=== PATIENT | female | born 1990 ===

== ENCOUNTER 2017-10-18 02:20 | Emergency (ER) | payer OTHER ==
[2017-10-18 02:35] VITALS: BP 92/46; PULSE 87; RESP 18; TEMP 98; O2SAT 99
--- NOTE | 2017-10-18 02:59 | ED PDOC ---
HPI: Psych/Substance Abuse Time Seen by Provider: 10/18/17 02:27 Chief Complaint (Nursing): Substance Abuse Chief Complaint (Provider): substance abuse History Per: Patient History/Exam Limitations: no limitations Onset/Duration Of Symptoms: Hrs (today) Involuntary Hold By: None Additional Complaint(s): Kelly Peters is a 27 year old female, with a history of substance abuse, who was brought to the emergency department via EMS for substance abuse after she was found asleep in public. She admits to using crack cocaine. She denies any acute medical complaints and similarly denies psychiatric complaints, she is requesting to be discharged. PMD: None provided. Past Medical History Reviewed: Historical Data, Nursing Documentation, Vital Signs Vital Signs: Last Vital Signs Temp 98 F 10/18/17 02:25 Pulse 87 10/18/17 02:25 Resp 18 10/18/17 02:25 BP 92/46 L 10/18/17 02:25 Pulse Ox 99 10/18/17 02:25 - Medical History PMH: No Chronic Diseases - Surgical History Surgical History: No Surg Hx - Family History Family History: States: Unknown Family Hx - Social History Current smoker - smoking cessation education provided: No Alcohol: None Drugs: Opiates (heroin) - Allergies Allergies/Adverse Reactions: Allergies Allergy/AdvReac Type Severity Reaction Status Date / Time carrot Allergy RASH Verified 10/18/17 02:25 Review of Systems ROS Statement: Except As Marked, All Systems Reviewed And Found Negative Constitutional: Positive for: Other (substance abuse) Physical Exam - Reviewed Nursing Documentation Reviewed: Yes Vital Signs Reviewed: Yes - Physical Exam Appears: Positive for: Non-toxic Head Exam: Positive for: ATRAUMATIC, NORMOCEPHALIC Skin: Positive for: Normal Color, Warm, Dry Eye Exam: Positive for: EOMI, PERRL, Conjunctival injection (of the right eye) Neck: Positive for: Painless ROM, Supple Cardiovascular/Chest: Positive for: Regular Rate, Rhythm. Negative for: Murmur Respiratory: Positive for: Normal Breath Sounds. Negative for: Respiratory Distress Gastrointestinal/Abdominal: Positive for: Normal Exam, Soft. Negative for: Tenderness, Guarding, Rebound Back: Positive for: Normal Inspection. Negative for: L CVA Tenderness, R CVA Tenderness, Vertebral Tenderness Extremity: Positive for: Normal ROM (upper and lower extremities). Negative for : Deformity, Swelling Neurologic/Psych: Positive for: Alert, Oriented (x3). Negative for: Motor/ Sensory Deficits - ECG O2 Sat by Pulse Oximetry: 99 (RA) Pulse Ox Interpretation: Normal Medical Decision Making Medical Decision Making: Time: : Initial Impression: 27 y/o female brought for substance abuse Initial Plan: :46 -Patient declined any medical care in the ER. She is alert and orientedx3 with decision making capacity. Patient is medically stable for discharge. ----- Scribe Attestation: Documented by Mohit Travis, acting as a scribe for Christiano Whitney MD. Provider Scribe Attestation: All medical record entries made by the Scribe were at my direction and personally dictated by me. I have reviewed the chart and agree that the record accurately reflects my personal performance of the history, physical exam, medical decision making, and the department course for this patient. I have also personally directed, reviewed, and agree with the discharge instructions and disposition. Disposition - Clinical Impression Clinical Impression: Polysubstance abuse - Disposition Disposition: Routine/Home Disposition Time: :46 Condition: STABLE Instructions: Polysubstance Abuse Forms: [employer] ([place])
== END 2017-10-18 02:59 | disposition home or self-care (01) ==
LOC: H.ER 02:20
DX: F19.10 Other psychoactive substance abuse, uncomplicated (principal)

== ENCOUNTER 2017-10-18 08:18 | Emergency (ER) | payer OTHER ==
[2017-10-18 08:22] VITALS: BMI 24.2
[2017-10-18 10:08] LABS: BASO % 0.3 % (0.0-2.0); EOS # 0.4 K/uL (0.0-0.7); EOS % 2.9 % (0.0-4.0); LYMPH # 2.1 K/uL (1.0-4.3); MEAN CELL VOLUME 79.5 fl (81.0-99.0); MEAN CORPUSCULAR HEMOGLOBIN 26.6 pg (27.0-31.0); MEAN CORPUSCULAR HGB CONC 33.4 g/dL (33.0-37.0); MEAN PLATELET VOLUME 9.2 fl (7.2-11.7); MONO # 0.5 K/uL (0.0-0.8); MONO % 4.1 % (0.0-10.0); NEUT # 9.5 K/uL (1.8-7.0); NEUT % 75.7 % (50.0-75.0); NRBC % 0.1 % (0.0-0.0); RBC 5.27 Mil/uL (3.80-5.20); RED CELL DISTRIBUTION WIDTH 13.7 % (11.5-14.5); WHITE BLOOD COUNT 12.5 K/uL (4.8-10.8)
[2017-10-18 10:19] LABS: BLOOD UREA NITROGEN 9 mg/dl (7-17); GFR AFRICAN-AMERICAN > 60; GFR NON-AFRICAN AMERICAN > 60
[2017-10-18 10:20] LABS: ALB/GLOB RATIO 1.1 (1.0-2.1); ALBUMIN 3.9 g/dL (3.5-5.0); ALT/SGPT 29 U/L (9-52); AST/SGOT 37 U/L (14-36); CALCIUM 8.9 mg/dL (8.4-10.2)
--- NOTE | 2017-10-18 10:59 | ED PDOC ---
Syncope/Near Syncope/Dizziness Time Seen by Provider: 10/18/17 09:00 Chief Complaint (Nursing): Syncope Chief Complaint (Provider): Syncope History Per: Patient History/Exam Limitations: intoxication Onset/Duration Of Symptoms: Hrs Activity At Onset Of Symptoms: Lying (sleeping) Additional Complaint(s): 27 years old female with history of substance abuse brought to the ED by [facility] U[facility] for evaluation of intoxication after she was found sleeping on someone's porch. Patient was discharged earlier this morning from the ED for a visit related to crack cocaine abuse. Police report finding crack on her when she was sleeping. Patient reports she has been unable to sleep recently. PMD: non provided Past Medical History Reviewed: Historical Data, Nursing Documentation, Vital Signs Vital Signs: Last Vital Signs Temp 98.1 F 10/18/17 08:22 Pulse 66 10/18/17 08:22 Resp 16 10/18/17 08:22 BP 117/62 10/18/17 08:22 Pulse Ox 100 10/18/17 08:22 - Medical History PMH: No Chronic Diseases - Surgical History Surgical History: No Surg Hx - Family History Family History: States: Unknown Family Hx - Social History Current smoker - smoking cessation education provided: No (unknown) Alcohol: None (unknown) Drugs: Cocaine - Home Medications Home Medications: Ambulatory Orders Medication Instructions Recorded Dicyclomine [Bentyl] 20 mg PO QID PRN #20 tab 10/18/17 Ondansetron ODT [Zofran ODT] 1 odt PO Q6 PRN #20 odt 10/18/17 - Allergies Allergies/Adverse Reactions: Allergies Allergy/AdvReac Type Severity Reaction Status Date / Time carrot Allergy RASH Verified 10/18/17 19:46 Review of Systems Review Of Systems: ROS cannot be obtained secondary to pt's inabilty to answer questions. Physical Exam - Reviewed Nursing Documentation Reviewed: Yes Vital Signs Reviewed: Yes - Physical Exam Appears: Positive for: No Acute Distress Head Exam: Positive for: ATRAUMATIC, NORMOCEPHALIC Skin: Positive for: Normal Color, Warm, Dry Eye Exam: Positive for: Normal appearance, EOMI, PERRL ENT: Positive for: Normal ENT Inspection Neck: Positive for: Normal Cardiovascular/Chest: Positive for: Regular Rate, Rhythm. Negative for: Murmur Respiratory: Positive for: Normal Breath Sounds. Negative for: Respiratory Distress Gastrointestinal/Abdominal: Positive for: Normal Exam, Soft. Negative for: Tenderness Back: Positive for: Normal Inspection Extremity: Positive for: Normal ROM. Negative for: Deformity Neurologic/Psych: Positive for: Alert, Oriented - Laboratory Results Result Diagrams: 10/18/17 09:52 10/18/17 09:52 - ECG O2 Sat by Pulse Oximetry: 100 (RA) Pulse Ox Interpretation: Normal Medical Decision Making Medical Decision Making: Time: 921 Initial Impression: Drug abuse Initial Plan: --Alcohol Serum --CM --Urine Drug screen --CBC --Waiting for patient to become more awake. pt currently more awake, alert, ambulating with steady gait. stable vitals. stable for dc. ----- Scribe Attestation: Documented by Erica Hebert, acting as a scribe for Dora Arevalo MD. Provider Scribe Attestation: All medical record entries made by the Scribe were at my direction and personally dictated by me. I have reviewed the chart and agree that the record accurately reflects my personal performance of the history, physical exam, medical decision making, and the department course for this patient. I have also personally directed, reviewed, and agree with the discharge instructions and disposition. Disposition - Clinical Impression Clinical Impression: Substance abuse - Patient ED Disposition Is Patient to be Admitted: No Counseled Patient/Family Regarding: Studies Performed, Diagnosis, Need For Followup - Disposition Referrals: [facility] [Outside] [facility] [Outside] Disposition: Routine/Home Disposition Time: 13:00 Condition: IMPROVED Additional Instructions: follow up with your doctor this week return to the ED with any worsening or concerning symptoms Instructions: Drug Abuse and Drug Addiction (DC) Forms: [employer] ([place])
[2017-10-18] MEDS ORDERED: Potassium Chloride 20 mEq ER Tab PO ONE ×2 (11:03→13:05)
[2017-10-18 13:15] VITALS: BP 124/69; PULSE 78; RESP 16; TEMP 98.7
[2017-10-19 20:44] VITALS: O2SAT 100
== END 2017-10-18 13:12 | disposition home or self-care (01) ==
LOC: H.ER 08:18
DX: F19.10 Other psychoactive substance abuse, uncomplicated (principal)

== ENCOUNTER 2017-10-18 19:23 | Emergency (ER) | payer OTHER ==
[2017-10-18 19:24] VITALS: BMI 24.2
[2017-10-18 19:48] VITALS: RESP 18; O2SAT 100
--- NOTE | 2017-10-18 20:22 | ED PDOC ---
HPI: Psych/Substance Abuse Time Seen by Provider: 10/18/17 20:11 Chief Complaint (Nursing): Substance Abuse Chief Complaint (Provider): withdrawal Additional Complaint(s): pt reports that she is withdrawing from heroin and that her last heroin was yesterday. normally snorts 3 bags a day chills weakness nausea PMD None Past Medical History Reviewed: Historical Data, Nursing Documentation, Vital Signs Vital Signs: Last Vital Signs Temp 97.9 F 10/18/17 19:46 Pulse 79 10/18/17 19:46 Resp 18 10/18/17 19:46 BP 123/79 10/18/17 19:46 Pulse Ox 100 10/18/17 19:46 - Medical History PMH: No Chronic Diseases - Family History Family History: States: Unknown Family Hx - Social History Current smoker - smoking cessation education provided: Yes Drugs: Opiates - Home Medications Home Medications: Ambulatory Orders Medication Instructions Recorded Dicyclomine [Bentyl] 20 mg PO QID PRN #20 tab 10/18/17 Ondansetron ODT [Zofran ODT] 1 odt PO Q6 PRN #20 odt 10/18/17 - Allergies Allergies/Adverse Reactions: Allergies Allergy/AdvReac Type Severity Reaction Status Date / Time carrot Allergy RASH Verified 10/18/17 19:46 Review of Systems ROS Statement: Except As Marked, All Systems Reviewed And Found Negative (and as per HPI) Constitutional: Positive for: Chills, Sweats, Weakness Gastrointestinal: Positive for: Nausea, Abdominal Pain. Negative for: Vomiting Neurological: Positive for: Dizziness Physical Exam - Reviewed Nursing Documentation Reviewed: Yes - Physical Exam Appears: Positive for: No Acute Distress (pt is sleeping in stretcher with cover pulled up over her head on initial arrival to room, difficult to arouse initially) Head Exam: Positive for: ATRAUMATIC, NORMOCEPHALIC Skin: Positive for: Warm, Dry Eye Exam: Positive for: EOMI, PERRL ENT: Positive for: Pharynx Is (clear) Neck: Positive for: Painless ROM, Supple Cardiovascular/Chest: Positive for: Regular Rate, Rhythm Respiratory: Positive for: Normal Breath Sounds. Negative for: Respiratory Distress Gastrointestinal/Abdominal: Positive for: Soft. Negative for: Tenderness Back: Positive for: Normal Inspection. Negative for: Decreased ROM Extremity: Positive for: Normal ROM. Negative for: Deformity Lymphatic: Negative for: Adenopathy Neurologic/Psych: Positive for: Alert. Negative for: Motor/Sensory Deficits - ECG O2 Sat by Pulse Oximetry: 100 - Progress ED Course And Treament: Reviewed previous chart: 2 prior visits today and had been sleeping in [facility] and [facility] in between discharge. She reports withdrawal but has not clinical signs of severe withdrawal. Stable for discharge. Addiction resources given. Disposition - Clinical Impression Clinical Impression: Opiate withdrawal Counseled Patient/Family Regarding: Studies Performed, Diagnosis, Need For Followup, Rx Given - Disposition Referrals: [facility] [Outside] Disposition: Routine/Home Disposition Time: 20:17 Condition: STABLE Prescriptions: Dicyclomine [Bentyl] 20 mg PO QID PRN #20 tab PRN Reason: abdominal pain Ondansetron ODT [Zofran ODT] 1 odt PO Q6 PRN #20 odt PRN Reason: Nausea/Vomiting Instructions: Drug Abuse and Drug Addiction (DC), Opioid Use Disorder Forms: [employer] ([employer])
[2017-10-18 20:43] VITALS: BP 130/82; PULSE 84; TEMP 98.4
== END 2017-10-18 20:35 | disposition home or self-care (01) ==
LOC: H.ER 19:23
DX: F11.23 Opioid dependence with withdrawal (principal)